=== PATIENT | female | born 1950 | race Asian ===

== ENCOUNTER 2018-01-23 14:24 | Outpatient (CLI) | payer MEDICARE, BC ==
--- NOTE | 2018-01-23 15:51 | MRI ---
BRAIN MRI WITHOUT CONTRAST: 01/23/18 HISTORY: Two weeks of headaches. COMPARISON: None. TECHNIQUE: Brain MRI is performed without intravenous gadolinium administration. Multisequential, multiplanar im aging is performed. FINDINGS: There is mild prominence of the anterior aspect of the calvarium bilaterally suggesting hyperostosis frontalis interna. The overall marrow signal of the calvarium is within normal limits. Midline brain parenchymal structures are unremarkable. No hemorrhage on the axial gradient echo sequence. No parenchymal mass, mass effect, or midline shift. Brain volume is age appropriate. Cortical castañeda-wh ite matter differentiation is preserved. Ventricles and sulci are patent and symmetric. No significant FLAIR white matter hyperintensity. Central arterial flow voids are maintained. Absent restricted diffusion. Note is made of a partially empty sella. Mild mucosal disease involving the paranasal sinuses. Adequate mastoid air cell aeration. IMPRESSION: 1. Absent restricted diffusion. No acute infarct. 2. Age appropriate atrophy. POS: [facility]
== END 2018-01-23 14:25 | disposition home or self-care (01) ==
LOC: SCSMRI 14:24
PROVIDERS: ATTEND Family Medicine
DX: R51 Headache (principal)
CPT/HCPCS: 70551

== ENCOUNTER 2018-03-17 13:32 | Outpatient (CLI) | payer MEDICARE, BC ==
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
== END 2018-03-17 13:33 | disposition home or self-care (01) ==
LOC: SCSMRI 13:32
PROVIDERS: ATTEND Physical Medicine & Rehabilitation
DX: M79.629 Pain in unspecified upper arm (principal); M54.5 Low back pain; M47.812 Spondylosis without myelopathy or radiculopathy, cervical region; M47.816 Spondylosis without myelopathy or radiculopathy, lumbar region; M47.817 Spondylosis without myelopathy or radiculopathy, lumbosacral region
CPT/HCPCS: 72141; 72148

== ENCOUNTER 2018-03-23 16:44 | Outpatient (CLI) | payer MEDICARE, BC ==
--- NOTE | 2018-03-23 17:15 | RAD ---
CERVICAL SPINE FIVE VIEWS: Indication: Neck pain. FINDINGS: Lateral views were obtained in neutral, flexion, and extension positions. Cervical vertebrae maintain normal height. Slight anterolisthesis at C7-T1. Posterior spondylosis is prominent at C5-6 and C6-7. Loss of disc space at C5-6 and C6-7. Mild anterior osteophytes. Posterior listhesis occurs at C6-7 with extension. IMPRESSION: Degenerative changes as described. POS: [facility]
== END 2018-03-23 16:45 | disposition home or self-care (01) ==
LOC: SCSRAD 16:44
PROVIDERS: ATTEND Physical Medicine & Rehabilitation
DX: M54.2 Cervicalgia (principal); M47.812 Spondylosis without myelopathy or radiculopathy, cervical region
CPT/HCPCS: 72050

== ENCOUNTER 2018-08-25 11:49 | Outpatient (CLI) | payer MEDICARE, BC ==
--- NOTE | 2018-08-25 12:11 | RAD ---
RIGHT KNEE 3 VIEWS: Date: 08/25/18 HISTORY: Knee pain. FINDINGS: Medial and lateral joint spaces are preserved. Minimal spurring from the tibial spine. No joint effus ion. No acute abnormality. IMPRESSION: Some minimal degenerative change of right knee. No acute process. POS: [facility]
== END 2018-08-25 11:50 | disposition home or self-care (01) ==
LOC: SCSRAD 11:49
PROVIDERS: ATTEND Physical Medicine & Rehabilitation
DX: M25.561 Pain in right knee (principal); M17.11 Unilateral primary osteoarthritis, right knee